=== PATIENT | male | born 1955 | race Caucasian/White ===

== ENCOUNTER → 2023-11-28 08:38 | Outpatient (REF) | payer MEDICARE, SELFPAY | LOC: HWRAD 08:38 | PROVIDERS: ATTENDING PHYSICIAN Internal Medicine | DX: N40.1 Benign prostatic hyperplasia with lower urinary tract symptoms (principal); N13.8 Other obstructive and reflux uropathy | CPT/HCPCS: 76770 ==

== ENCOUNTER 2023-12-25 08:16 | Day surgery (SDC) | payer MEDICARE, SELFPAY ==
[2023-12-25] VITALS (9 sets, daily range): BP systolic 112–144; BP diastolic 78–95; BMI 27.3
--- NOTE | 2023-12-25 09:20 | PTCARENOTE ---
at bedside with pt, pt denies complaints, case will be delayed due to inpatient emergency case, pt and informed
--- NOTE | 2023-12-25 14:36 | ITS.EPS ---
Employee Wellness/Fitness Coordinator - EPS Report
EPS
Procedure Report:
Electrophysiology study:
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
evaluate a possible sustained or inducible ventricular tachycardia and need for possible ICD placement.
Date of the Procedure:
12/25/2023
Indications: Non-sustained Ventricular Tachycardia, tachy darci syndrome
Pre-Operative Diagnosis: Non-sustained Ventricular Tachycardia, tachy darci syndrome
Post-Operative Diagnosis: Non-sustained Ventricular Tachycardia, tachy darci syndrome
Procedure Performed: EP study
Performing physician:
Radha Shrestha MD
Anesthesia:
See anesthesia records
Detailed Description of the Procedure:
Written informed consent was obtained from the patient after a full explanation of the risks and benefits of the procedure including the risks of sedation and anesthesia.
The patient was brought to the electrophysiology laboratory in stable condition in fasting state. Continuous electrocardiographic and hemodynamic monitoring was initiated. The initial rhythm was sinus bradycardia.
The procedure site was meticulously prepared with surgical scrub and allowed to dry with no pooling. Sterile draping was applied to cover the procedure site. The image intensifier was draped with sterile bag and positioned over the patient.
After infusion of local anesthetic, vascular access was obtained under ultrasound guidance and sheaths were placed over guide wire as detailed below.
Sheaths:
��������� 9Fr sheath in left axillary vein
��������� 6Fr sheath in left axillary vein
Catheters:
��������� 6Fr - Jonathan Quad-cath at RVa and RVOT
Baseline intervals (milliseconds):
PP interval (baseline cycle length): 1086
P wave duration: 123
AR interval: 356
QRS duration:98
QT interval: 390
Sinus Node Function:
Sinus bradycardia noted. Sinus node responded to Isuprel but was slow at baseline to 50 bpm.
Atrioventricular Wendy Function:
There was slow AV conduction noted at baseline that improved with stimulation and Isuprel. The AV wendy functions are deemed within normal range.
Ventricular Function:
The ventricular Wenckebach was at 600 msec. Single ventricular extrastimuli were delivered following drive train of 400 msec the ventricular ERP was determined 270 msec. The ventricular electrical functions are within acceptable range.
Arrhythmia Induction:
Programmed stimulation including single, double and triple extrastimuli were delivered from the RVa. The burst pacing from the RVa was also attempted. The RVa was paced as per MUSTT protocol with no arrhythmia induced at drive train of 600 and then
at 400 msec with S1, S2, S3 and S4.
The catheter was moved to RVOT and the induction was again attempted with drive train of 600 msec and 400 msec with single, double and triple extrastimuli. There was no arrhythmia induced with aggressive induction maneuvers.
Only non-sustained ventricular arrhythmia was inducible. No VT was sustained.
Drug testing:
Isuprel was started and gradually increased from 1 to 4 mcg /min with adequate tachycardia response noted.
With the 4 mcg/min Isuprel, patient developed sinus tachycardia and the arrhythmia induction was again attempted during the Isuprel and during the washout phase.
The EP study along with arrhythmia induction was repeated with programmed stimulation and the burst pacing was not able to induce any sustained arrhythmia.
The EP study during the washout phase was again attempted but no arrhythmia was noted.
Procedure End
Following the completion of the EP study, catheters were removed. The sheaths were removed and hemostasis achieved with manual compression.
Estimated Blood loss:
<5 cc
Specimens Removed:
None.
Implants / Devices:
None
Urine output:
None
Packs / Drains/ Tubes:
None
Instrument / Sponge Count Correct:
Yes
Complications of the Procedure:
None
Condition of Patient at Time of Transfer:
Hemodynamically stable with no neurological or vascular compromise.
Summary:
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 �
Recommend placement of dual chamber pacemaker for use of beta blockers (limited due to baseline bradycardia).
--- NOTE | 2023-12-25 14:49 | ITS.CL.PACE ---
Utility Tractor Operator - Pacemaker Implant
Pacemaker Implant
Procedure Report:
Dual Chamber Pacemaker Placement:
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
Indications: Tachy Lawrence syndrome
Date of the Procedure: 12/25/2023
Pre-Operative Diagnosis: Tachy Lawrence syndrome
Post-Operative Diagnosis: Tachy Lawrence syndrome
Procedure Performed: DUAL CHAMBER PACEMAKER IMPLANTATION
Performing Physician:
Rahda Shrestha MD
Anesthesia:
See anesthesia records
Pre-operative antibiotics:
Ancef 2gm IV
Detailed Description of the Procedure:
The patient was identified using hospital identification and informed consent obtained for the procedure. The risks were explained including, but not limited to: Bleeding, infection, arrhythmia, stroke, vascular/cardiac/lung puncture, surgery,
pacemaker dependency/device malfunction. All questions were answered.
The patient was brought to the electrophysiology laboratory in stable condition in fasting state. Continuous electrocardiographic and hemodynamic monitoring was initiated. The initial rhythm was normal sinus rhythm.
A surgical pause and time out was performed immediately prior to the procedure with review of her medical history, recent labs, allergies and medications with site of procedure identified and consent noted in the chart. Antibiotics pre operatively
given. All team members concurred.
The procedure site was meticulously prepared with surgical scrub and allowed to dry with no pooling. Sterile draping was applied to cover the procedure site. The image intensifier was draped with sterile bag and positioned over the patient.
The left infraclavicular region was prepped and draped in the usual sterile fashion. Local anesthesia was administered subcutaneously using 1% lidocaine / Bupivacaine. The left cephalic vein cutdown was attempted. There was no cephalic noted.
Following infiltration with local anesthetic, the axillary vein was accessed using the fluoroscopic guidance using the micro-puncture apparatus. The vascular sheaths were introduced for lead access. The leads were advanced into the right ventricle
and the right atrium.
The right ventricular lead was secured in position with an active fixation technique at the apical septal location.
The atrial lead was placed in the right atrial appendage with passive fixation tines.
There was excellent sensing, pacing, and impedance from the leads, with no diaphragmatic stimulation at 10 V output.�Bovie cautery, antibiotics, and fluoroscopy were used.
The sheaths were withdrawn, and the thresholds remained acceptable. The leads were secured in position at the venous entry site with 0-silk. A pocket was fashioned contiguous to the incision. The electrode terminals were connected to the pulse
generator, which was placed into the pocket.
The device was anchored to underllying fascia using 0-silk suture. The wound was irrigated thoroughly with antibiotic solution and closed in 3 layers using 2-0 Vloc then 4-0 Vloc sutures to the dermis.
Skin Steristrips were applied externally once the skin was dry.
Procedure End:
The procedure was tolerated well.
Estimated Blood loss:
5 cc
Specimens Removed:
No cultures and no specimens were obtained. No intraoperative pathology was identified.
Urine output:
None
Packs / Drains/ Tubes:
None
Instrument / Sponge Count Correct:
Yes
Complications of the Procedure:
None
Condition of Patient at Time of Transfer:
Hemodynamically stable with no neurological or vascular compromise.
Device information:�
Generator: Antenna; Model: [id number]; Serial # [id number]�
Atrial Lead: Antenna; Model: 4574-53; Serial # [id number]�
Measured data in the right atrium was sensing of 6 mV, impedance of 620 ohms and threshold of 0.5V at 0.4ms.
RV Lead: [employer]; Model: 5076-58; Serial # [id number]
Measured data in the RV lead was sensing of 10mV, impedance of 760 ohms and threshold of 0.8 V at 0.4ms�
Lawrence parameter settings were AAIR <=>DDDR 60-130 bpm. �
����������� Mode Switch: On
����������� Paced AV interval: 180ms
����������� Sensed AV interval: 150 ms.
����������� Rate Adaptive A-V Interval: Off
Output� parameters:
����������������������� Amplitude (V)������������� Pulse Width (ms)������� Sensitivity (mV)
����������� RA: ����� 3.5 ����������������� ����������� 0.4������������������ ����������� 0.3
����������� RV:������ 3.5������������������ ����������� 0.4������������������ ����������� 0.9
Summary:
Successful implantation of MRI compatible dual chamber Medtronic pacemaker
Results/Recommendations:
-Please follow up CXR�
1. Please provide patient with adequate pain control�
Instructions to be given to patient:�
- Please follow up with [facility] at [address] [place] [address] ([phone]) to get your wound checked within 14 days of your discharge.
- Do not wet incision site until after it is evaluated at cardiology clinic. No showers until then. Sponge baths are OK.�
- No swimming until cleared by the cardiology clinic.
- Do not lift left elbow above shoulder, particularly with sudden jerking movements, for 1 month�
- Do not lift anything weighing more than 10 pounds with the left arm for 1 month�
- If you notice any fevers, shortness of breath, lightheadedness, chest pain, or worsening swelling in the wound site, please contact the arrhythmia clinic, contact your wet cotton feeder, or present to the hospital for evaluation.�
Radha Shrestha MD
Electrophysiology
--- NOTE | 2023-12-25 18:01 | W.PN.UPDATE ---
Update Note
Progress Note Update
Pt seen post EPS/PPM implant. Left ACW w/pressure dressing CDI, to be removed in AM. Post CXR w/stable lead position, no pneumothorax. Pt ambulated to bathroom and stated he 'felt pacing'. He had been in NSR and indeed began AV pacing. [employer]
device rep interrogated and adjusted programming so pt could not feel pacing twitch. Will resume Xarelto tomorrow evening, and will start Toprol XL 50mg daily in AM- rx sent to pharmacy. Activity restrictions reviewed with pt/. Incision check
next week at [facility]. Home later today if tele/device site remain stable.
[2023-12-25] MEDS: ANCEF 5 IV (18:20)
== END 2023-12-25 18:35 | disposition home or self-care (01) ==
LOC: CATH 08:16
PROVIDERS: ATTENDING PHYSICIAN Internal Medicine Cardiovascular Disease; FAMILY PHYSICIAN Internal Medicine; OTHER PHYSICIAN Internal Medicine
DX: I49.5 Sick sinus syndrome (principal); I47.20 Ventricular tachycardia, unspecified; Z88.0 Allergy status to penicillin; E78.1 Pure hyperglyceridemia; D68.51 Activated protein C resistance; Z79.01 Long term (current) use of anticoagulants; I10 Essential (primary) hypertension; I25.84 Coronary atherosclerosis due to calcified coronary lesion; I25.10 Atherosclerotic heart disease of native coronary artery without angina pectoris; E78.5 Hyperlipidemia, unspecified
CPT/HCPCS: 33208; 93620; C1730; C1892; 71045; 76937; 93005; 93623; C1785; C1898

== ENCOUNTER → 2024-10-15 07:09 | Outpatient (REF) | payer MEDICARE, SELFPAY | LOC: HWRCS 07:09 | PROVIDERS: ATTENDING PHYSICIAN Internal Medicine; FAMILY PHYSICIAN Internal Medicine | DX: I47.29 Other ventricular tachycardia (principal); I25.10 Atherosclerotic heart disease of native coronary artery without angina pectoris; I10 Essential (primary) hypertension; I82.502 Chronic embolism and thrombosis of unspecified deep veins of left lower extremity | CPT/HCPCS: 93306 ==

== ENCOUNTER → 2025-06-06 07:45 | Outpatient (REF) | payer MEDICARE, SELFPAY | LOC: HWRAD 07:45 | PROVIDERS: ATTENDING PHYSICIAN Internal Medicine; FAMILY PHYSICIAN Internal Medicine | DX: I25.10 Atherosclerotic heart disease of native coronary artery without angina pectoris (principal); I77.810 Thoracic aortic ectasia | CPT/HCPCS: 75571 ==

== ENCOUNTER 2025-07-07 06:13 | Day surgery (SDC) | payer MEDICARE, SELFPAY | END 2025-07-07 10:24 | disposition home or self-care (01) | LOC: GI 06:13 | PROVIDERS: ATTENDING PHYSICIAN Internal Medicine Gastroenterology; FAMILY PHYSICIAN Internal Medicine | DX: Z12.11 Encounter for screening for malignant neoplasm of colon (principal); K63.5 Polyp of colon; K62.1 Rectal polyp; K64.8 Other hemorrhoids; Z86.0100 Personal history of colon polyps, unspecified; Z79.01 Long term (current) use of anticoagulants | CPT/HCPCS: 45380; 88305 ==